=== PATIENT | male | born 1955 | race Caucasian/White ===

== ENCOUNTER 2017-06-02 16:24 | Inpatient (IN) | payer MEDICAID ==
[2017-06-02 17:43] LABS: ADD MAN DIFF? NO
[2017-06-02 17:46] LABS: ABNORMAL IP MESSAGE 1; BASOPHILS % 0.4 % (0.0-2.0); EOSINOPHILS # 0.2 10^3/ul (0.0-0.5); EOSINOPHILS % 3.5 % (0.0-7.0); HEMATOCRIT 37.8 % (42.0-52.0); HEMOGLOBIN 13.5 g/dl (14.0-18.0); LYMPHOCYTES # 1.2 10^3/ul (0.8-2.9); LYMPHOCYTES % 24.7 % (15.0-51.0); MEAN CORPUSCULAR HEMOGLOBIN 34.1 pg (29.0-33.0); MEAN CORPUSCULAR HGB CONC 35.7 g/dl (32.0-37.0); MEAN CORPUSCULAR VOLUME 95.5 fl (82.0-101.0); MEAN PLATELET VOLUME 10.2 fl (7.4-10.4); MONOCYTE # 0.6 10^3/ul (0.3-0.9); MONOCYTES % 11.6 % (0.0-11.0); NEUTROPHIL # 2.9 10^3/ul (1.6-7.5); NEUTROPHILS % 59.6 % (39.0-77.0); PLATELET COUNT 59 10^3/UL (140-415); POSITIVE DIFF @See below; RED BLOOD COUNT 3.96 10^6/ul (4.70-6.10); RED CELL DISTRIBUTION WIDTH 15.2 % (11.5-14.5)
[2017-06-02 17:46] LABS: WHITE BLOOD COUNT 4.8 10^3/ul (4.8-10.8)
[2017-06-02] MEDS: FUROSEMIDE 20 MG TAB PO (17:58)
[2017-06-02 18:00] LABS: INR 1.58; PARTIAL THROMBOPLASTIN TIME 36.2 Sec (25.0-35.0); PROTIME 19.2 Sec (11.9-14.9); PT RATIO 1.5
[2017-06-02 18:02] LABS: ADD UMIC YES; UR ASCORBIC ACID NEGATIVE (NEGATIVE); UR BILIRUBIN (Dip) 1+ mg/dL (NEGATIVE); UR BLOOD (Dip) NEGATIVE (NEGATIVE); UR CLARITY CLEAR (CLEAR); UR COLOR AMBER (YELLOW); UR GLUCOSE (Dip) NEGATIVE (NEGATIVE); UR KETONES (Dip) TRACE mg/dL (NEGATIVE); UR LEUKOCYTE ESTERASE (Dip) NEGATIVE Leu/ul (NEGATIVE); UR MUCUS MANY /HPF (NONE SEEN); UR NITRITE (Dip) NEGATIVE (NEGATIVE); UR RBC 1 /HPF (0-5); UR SPECIFIC GRAVITY (Dip) 1.034 (1.003-1.030); UR TOTAL PROTEIN (Dip) 1+ mg/dl (NEGATIVE); UR UROBILINOGEN (Dip) 2+ mg/dL (NEGATIVE); UR WBC 2 /HPF (0-5)
[2017-06-02 18:06] LABS: ALANINE AMINOTRANSFERASE 81 IU/L (13-69); ALBUMIN 2.8 g/dl (3.3-4.9); ALBUMIN/GLOBULIN RATIO 0.65; ALKALINE PHOSPHATASE 104 IU/L (42-121); ANION GAP 9 (8-16); ASPARTATE AMINO TRANSFERASE 124 IU/L (15-46); BILIRUBIN,INDIRECT 2.3 mg/dl (0-1.1); BILIRUBIN,TOTAL 2.3 mg/dl (0.2-1.3); BLOOD UREA NITROGEN 14 mg/dl (7-20); CALCIUM 8.3 mg/dl (8.4-10.2); CARBON DIOXIDE 27 mmol/L (21-31); CHLORIDE 109 mmol/L (97-110); CREATININE 0.81 mg/dl (0.61-1.24); GLUCOSE 78 mg/dl (70-220); LIPASE 97 U/L (23-300); SODIUM 141 mmol/L (135-144); TOTAL PROTEIN 7.1 g/dl (6.1-8.1)
[2017-06-02 18:13] LABS: AMMONIA 23 umol/l (9-30)
[2017-06-02 18:19] LABS: TROPONIN-I < 0.012 ng/ml (0.00-0.12)
[2017-06-02] MEDS ORDERED: ALBUTEROL/IPRATROPIUM (NEB) 3 ML AMP HHN (19:00)
[2017-06-02] MEDS ORDERED: NITROGLYCERIN (SL) 0.4 MG TAB SL (19:00)
[2017-06-02] MEDS ORDERED: NACL 0.9% 3 ML SYG IV (19:00)
[2017-06-02] MEDS ORDERED: DOCUSATE SODIUM 100 MG CAP PO (19:00)
[2017-06-02] MEDS ORDERED: NA PHOSPHATE/BIPHOS 133 ML ENEMA PR (19:00)
[2017-06-02] MEDS ORDERED: MAGNESIUM HYDROXIDE 30ML CUP PO (19:00)
[2017-06-02] MEDS ORDERED: LORAZEPAM 2 MG INJ IV (19:00)
[2017-06-02] MEDS ORDERED: ACETAMINOPHEN 325 MG TAB PO (19:00)
[2017-06-02] MEDS: CEFTRIAXONE 1 GM/50 ML (PMX) 50 ML IVPB (19:06)
[2017-06-02] MEDS: AZITHROMYCIN 500MG/NS (PMX) 250 ML IVPB (19:06)
[2017-06-02 19:27] LABS: FREE T4 (FREE THYROXINE) 1.77 ng/dl (0.78-2.44)
[2017-06-02] MEDS: ONDANSETRON 4 MG INJ IV (19:42)
[2017-06-02 19:47] LABS: INR 1.96; PROTIME 22.8 Sec (11.9-14.9); PT RATIO 1.8
[2017-06-02] MEDS: HEPARIN 5,000 UNIT/0.5 ML VIAL SC (22:35)
[2017-06-02] MEDS: morphine 2 MG INJ IV (22:36)
[2017-06-03] MEDS: morphine 2 MG INJ IV ×3 (05:38→17:23)
[2017-06-03] MEDS: PANTOPRAZOLE 40 MG INJ IV (05:38)
[2017-06-03 06:02] LABS: ADD MAN DIFF? NO
[2017-06-03 06:08] LABS: ABNORMAL IP MESSAGE 1; BASOPHILS % 0.3 % (0.0-2.0); EOSINOPHILS # 0.1 10^3/ul (0.0-0.5); EOSINOPHILS % 4.4 % (0.0-7.0); HEMATOCRIT 33.3 % (42.0-52.0); HEMOGLOBIN 11.5 g/dl (14.0-18.0); LYMPHOCYTES # 0.9 10^3/ul (0.8-2.9); LYMPHOCYTES % 27.6 % (15.0-51.0); MEAN CORPUSCULAR HEMOGLOBIN 32.8 pg (29.0-33.0); MEAN CORPUSCULAR HGB CONC 34.5 g/dl (32.0-37.0); MEAN CORPUSCULAR VOLUME 94.9 fl (82.0-101.0); MEAN PLATELET VOLUME 11.1 fl (7.4-10.4); MONOCYTE # 0.4 10^3/ul (0.3-0.9); MONOCYTES % 12.7 % (0.0-11.0); NEUTROPHIL # 1.7 10^3/ul (1.6-7.5); NEUTROPHILS % 54.7 % (39.0-77.0); POSITIVE DIFF @See below; RED BLOOD COUNT 3.51 10^6/ul (4.70-6.10); RED CELL DISTRIBUTION WIDTH 15.2 % (11.5-14.5)
[2017-06-03 06:08] LABS: WHITE BLOOD COUNT 3.2 10^3/ul (4.8-10.8)
[2017-06-03 06:27] LABS: HEMOGLOBIN A1C 4.5 % (0-5.9)
[2017-06-03 06:49] LABS: CHOLESTEROL 89 mg/dl (100-200)
[2017-06-03 06:49] LABS: CHOL/HDL RATIO 2.6 RATIO; HDL CHOLESTEROL 33 mg/dl (30-78); LDL CHOLESTEROL,CALCULATED 37 mg/dl; PLATELET COUNT 54 10^3/UL (140-415); TRIGLYCERIDES 93 mg/dl (0-149)
[2017-06-03 06:59] LABS: ANION GAP 9 (8-16); BLOOD UREA NITROGEN 14 mg/dl (7-20); CALCIUM 7.8 mg/dl (8.4-10.2); CARBON DIOXIDE 27 mmol/L (21-31); CHLORIDE 111 mmol/L (97-110); CREATININE 0.82 mg/dl (0.61-1.24); GLUCOSE 84 mg/dl (70-220); MAGNESIUM 1.6 mg/dl (1.7-2.5); PHOSPHORUS 3.8 mg/dl (2.5-4.9); POTASSIUM 3.7 mmol/L (3.5-5.1); SODIUM 143 mmol/L (135-144)
[2017-06-03] MEDS: ALBUMIN HUMAN 25% 100 ML IV ×2 (09:24→21:02)
[2017-06-03] MEDS: FUROSEMIDE 20 MG INJ IV (09:29)
[2017-06-03] MEDS: LEVOFLOXACIN 750MG/D5W (PMX) 150 ML IVPB (11:05)
[2017-06-03] MEDS: ONDANSETRON 4 MG INJ IV (11:18)
[2017-06-03 13:57] LABS: TYPE AND SCREEN 1 1
[2017-06-03 18:19] LABS: FLD MN% 94.1 %; FLD PMN% 5.9 %; FLD RBC 1000 /uL; FLD WBC 271 /cmm; FLUID GLUCOSE 75 mg/dl; FLUID TYPE PARACENTESIS FLUID
[2017-06-03 18:20] LABS: FLUID AMYLASE < 30 U/L; FLUID LD 123 U/L; FLUID TYPE PARACENTESIS FLUID
[2017-06-03 18:21] LABS: FLUID TOTAL PROTEIN < 2.0 g/dl; FLUID TYPE PARACENTESIS FLUID
[2017-06-03 19:05] LABS: FLD CLARITY SLIGHTLY HAZY; FLD COLOR YELLOW
[2017-06-03 19:05] LABS: FLD TYPE PARACENTHESIS
[2017-06-03] MEDS: LACTOBACILLUS RHAMNOSUS CAP PO (20:34)
[2017-06-03] MEDS: HYDROCODONE/APAP (5/325) TAB PO (20:35)
[2017-06-04] MEDS: ALBUMIN HUMAN 25% 100 ML IV ×2 (04:38→12:32)
[2017-06-04 05:28] LABS: ADD MAN DIFF? NO
[2017-06-04 05:35] LABS: WHITE BLOOD COUNT 2.6 10^3/ul (4.8-10.8)
[2017-06-04 05:35] LABS: ABNORMAL IP MESSAGE 1; BASOPHILS % 0.4 % (0.0-2.0); EOSINOPHILS # 0.1 10^3/ul (0.0-0.5); EOSINOPHILS % 3.5 % (0.0-7.0); HEMATOCRIT 31.7 % (42.0-52.0); HEMOGLOBIN 11.2 g/dl (14.0-18.0); LYMPHOCYTES # 0.8 10^3/ul (0.8-2.9); LYMPHOCYTES % 29.8 % (15.0-51.0); MEAN CORPUSCULAR HEMOGLOBIN 33.5 pg (29.0-33.0); MEAN CORPUSCULAR HGB CONC 35.3 g/dl (32.0-37.0); MEAN CORPUSCULAR VOLUME 94.9 fl (82.0-101.0); MEAN PLATELET VOLUME 10.4 fl (7.4-10.4); MONOCYTE # 0.3 10^3/ul (0.3-0.9); MONOCYTES % 11.8 % (0.0-11.0); NEUTROPHIL # 1.4 10^3/ul (1.6-7.5); NEUTROPHILS % 54.5 % (39.0-77.0); PLATELET COUNT 49 10^3/UL (140-415); POSITIVE DIFF @See below; RED BLOOD COUNT 3.34 10^6/ul (4.70-6.10); RED CELL DISTRIBUTION WIDTH 14.4 % (11.5-14.5)
[2017-06-04] MEDS: PANTOPRAZOLE 40 MG INJ IV (05:48)
[2017-06-04 05:58] LABS: ALANINE AMINOTRANSFERASE 50 IU/L (13-69); ALBUMIN 2.3 g/dl (3.3-4.9); ALBUMIN/GLOBULIN RATIO 0.65; ALKALINE PHOSPHATASE 71 IU/L (42-121); ANION GAP 9 (8-16); ASPARTATE AMINO TRANSFERASE 78 IU/L (15-46); BILIRUBIN,INDIRECT 1.5 mg/dl (0-1.1); BILIRUBIN,TOTAL 1.5 mg/dl (0.2-1.3); BLOOD UREA NITROGEN 14 mg/dl (7-20); CARBON DIOXIDE 28 mmol/L (21-31); CHLORIDE 110 mmol/L (97-110); GLUCOSE 78 mg/dl (70-220); MAGNESIUM 1.7 mg/dl (1.7-2.5); PHOSPHORUS 3.2 mg/dl (2.5-4.9); POTASSIUM 3.9 mmol/L (3.5-5.1); SODIUM 143 mmol/L (135-144); TOTAL PROTEIN 5.8 g/dl (6.1-8.1)
[2017-06-04] MEDS: LACTOBACILLUS RHAMNOSUS CAP PO (08:32)
[2017-06-04] MEDS: LEVOFLOXACIN 750MG/D5W (PMX) 150 ML IVPB (08:32)
[2017-06-04] MEDS: morphine 2 MG INJ IV ×2 (09:37→13:52)
[2017-06-04 14:06] LABS: OCCULT BLOOD STOOL NEGATIVE (NEGATIVE)
[2017-06-04] MEDS ORDERED: DOCUSATE SODIUM 100 MG CAP PO (21:00)
[2017-06-05] MEDS ORDERED: PANTOPRAZOLE (EC) 40 MG TAB PO (06:00)
[2017-06-05] MEDS ORDERED: SPIRONOLACTONE 25 MG TAB PO (06:00)
[2017-06-05] MEDS ORDERED: NADOLOL 40 MG TAB PO (09:00)
== END 2017-06-04 17:00 | disposition home or self-care (01) | DRG 442 ==
LOC: E/R 16:24 → PP2 19:48
PROVIDERS: Internal Medicine; Pediatrics
PROC: 0W9G3ZX Drainage of Peritoneal Cavity, Percutaneous Approach, Diagnostic (ICD-10-PCS; principal; 2017-06-03)
DX: K72.00 Acute and subacute hepatic failure without coma (principal); B17.10 Acute hepatitis C without hepatic coma; R18.8 Other ascites; D68.4 Acquired coagulation factor deficiency; J90 Pleural effusion, not elsewhere classified; K74.60 Unspecified cirrhosis of liver; B18.2 Chronic viral hepatitis C; D69.59 Other secondary thrombocytopenia; J44.9 Chronic obstructive pulmonary disease, unspecified; F17.210 Nicotine dependence, cigarettes, uncomplicated; N20.0 Calculus of kidney; G47.33 Obstructive sleep apnea (adult) (pediatric); D64.9 Anemia, unspecified
CPT/HCPCS: 36430; 71045; 74176; 80048; 80053; 80061; 81001; 82042; 82140; 82150; 82270; 82945; 83036; 83615; 83690; 83735; 83986; 84100; 84157; 84439; 84443; 84484; 85025; 85610; 85730; 86850; 86900; 86901; 87040; 87070; 87102; 87116; 88104; 88305; 89051; 93005; 96374; 96375; 99285-25

== ENCOUNTER 2017-07-04 21:44 | Emergency (ER) | payer SELFPAY, MEDICAID ==
[2017-07-05] MEDS: ONDANSETRON 4 MG INJ IV (00:56)
[2017-07-05] MEDS: morphine 4 MG/ML VIAL IV (00:57)
[2017-07-05 01:24] LABS: ADD MAN DIFF? NO
[2017-07-05 01:29] LABS: ABNORMAL IP MESSAGE 1; BASOPHILS % 0.6 % (0.0-2.0); EOSINOPHILS # 0.1 10^3/ul (0.0-0.5); EOSINOPHILS % 3.3 % (0.0-7.0); HEMATOCRIT 38.6 % (42.0-52.0); HEMOGLOBIN 13.3 g/dl (14.0-18.0); LYMPHOCYTES % 28.2 % (15.0-51.0); MEAN CORPUSCULAR HEMOGLOBIN 33.2 pg (29.0-33.0); MEAN CORPUSCULAR HGB CONC 34.5 g/dl (32.0-37.0); MEAN CORPUSCULAR VOLUME 96.3 fl (82.0-101.0); MEAN PLATELET VOLUME 11.1 fl (7.4-10.4); MONOCYTE # 0.4 10^3/ul (0.3-0.9); MONOCYTES % 9.7 % (0.0-11.0); NEUTROPHIL # 2.1 10^3/ul (1.6-7.5); NEUTROPHILS % 57.9 % (39.0-77.0); POSITIVE DIFF @See below; RED BLOOD COUNT 4.01 10^6/ul (4.70-6.10)
[2017-07-05 01:29] LABS: WHITE BLOOD COUNT 3.6 10^3/ul (4.8-10.8)
[2017-07-05 01:39] LABS: PLATELET COUNT 54 10^3/UL (140-415)
[2017-07-05 01:41] LABS: ADD UMIC YES; UR ASCORBIC ACID 40 mg/dL (NEGATIVE); UR BILIRUBIN (Dip) NEGATIVE (NEGATIVE); UR BLOOD (Dip) NEGATIVE (NEGATIVE); UR CLARITY CLEAR (CLEAR); UR COLOR AMBER (YELLOW); UR GLUCOSE (Dip) NEGATIVE (NEGATIVE); UR KETONES (Dip) NEGATIVE (NEGATIVE); UR LEUKOCYTE ESTERASE (Dip) NEGATIVE Leu/ul (NEGATIVE); UR MUCUS MANY /HPF (NONE SEEN); UR NITRITE (Dip) NEGATIVE (NEGATIVE); UR RBC 1 /HPF (0-5); UR SPECIFIC GRAVITY (Dip) 1.029 (1.003-1.030); UR TOTAL PROTEIN (Dip) 1+ mg/dl (NEGATIVE); UR UROBILINOGEN (Dip) 2+ mg/dL (NEGATIVE); UR WBC 1 /HPF (0-5)
[2017-07-05 01:47] LABS: INR 1.45; PROTIME 17.9 Sec (11.9-14.9); PT RATIO 1.4
[2017-07-05 01:48] LABS: PARTIAL THROMBOPLASTIN TIME 37.1 Sec (25.0-35.0)
[2017-07-05 01:51] LABS: ALANINE AMINOTRANSFERASE 71 IU/L (13-69); ALBUMIN 2.9 g/dl (3.3-4.9); ALBUMIN/GLOBULIN RATIO 0.64; ALKALINE PHOSPHATASE 120 IU/L (42-121); ANION GAP 8 (8-16); ASPARTATE AMINO TRANSFERASE 108 IU/L (15-46); BLOOD UREA NITROGEN 14 mg/dl (7-20); CALCIUM 8.8 mg/dl (8.4-10.2); CARBON DIOXIDE 31 mmol/L (21-31); CHLORIDE 109 mmol/L (97-110); CREATININE 0.76 mg/dl (0.61-1.24); GLUCOSE 89 mg/dl (70-220); LIPASE 122 U/L (23-300); POTASSIUM 4.3 mmol/L (3.5-5.1); SODIUM 144 mmol/L (135-144); TOTAL PROTEIN 7.4 g/dl (6.1-8.1)
[2017-07-05 02:06] LABS: TROPONIN-I < 0.012 ng/ml (0.00-0.12)
== END 2017-07-05 02:37 | disposition home or self-care (01) ==
LOC: FTE 21:44
DX: R10.31 Right lower quadrant pain (principal); J44.9 Chronic obstructive pulmonary disease, unspecified; Z87.891 Personal history of nicotine dependence
CPT/HCPCS: 36415; 74176; 80053; 81001; 83690; 84484; 85025; 85610; 85730; 96374; 96375; 99285-25